=== PATIENT | male | born 1980 | race Caucasian/White ===

== ENCOUNTER 2025-01-15 15:00 | Outpatient (RCR) | payer BC, SELFPAY ==
--- NOTE | 2024-12-18 15:50 | HP.PTEVAL_ITS ---
Patient's Visit Information Visit Information Visit Information: JARVIS CLAROS is a 44 year old M referred to Physical Therapy by Dr. Calixto Donato MD with a diagnosis of L knee lateral release 11/21/24. Date of Evaluation: 12/18/24 Physical Therapist: Gabriel Williamson, PT, ATC Visit Plan Frequency: 2x /Week Duration: 4-6 Weeks Plan: L LE strengthening, core stab ex's, balance and proprio, bike, and HEP Subjective Subjective: DOS: 11/21/24. Pt reports he injured his L knee 5 years ago. Pt notes he was ascending stairs at his house when he experienced severe and sudden pain. Pt notes he had to wait for 5 years to have the surgery secondary to different practitioners referring him to pain management and physical therapy. Pt notes he finally had a lateral release performed as well as plica excision and chondroplasty to the patella and medial femoral condyle. Pt reports he is very glad to have had the surgery. Pt notes the severe pain he had prior to surgery is now gone. Pt reports he also has regained a lot of the mobility he had lost in his L knee. Pt denies tingling or numbness in L LE at this time. Pt denies sleep difficulty at this time. Pt reports he has stairs at home and descending them is still a little tricky. 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 Pt is able to perform all work duties, and IADL's at this time even though he is h aving difficulty with lifting heavy objects. 0/10 pain at rest, 3/10 pain at worst (when he tries to stretch his knee) Pain L knee: Pain Intensity (Out of 10): 0 Pain Intensity Range: 3 Objective Objective: TU seconds Neuro: B LE sensation is WNL to light touch. ROM: B knees are 0-120 degrees MMT: R knee flex= 65, ext= 64 #F; L knee flex= 46, ext= 64 #F Gait: No significant deviations at this time. Balance/Special Test Scores Lower Extremity Functional Score: 61 Goals Goal 1:: Decrease L knee pain x 50% to aid with stair negotiation Goal Time Frame: 4-6 Weeks Goal 2:: Increase L knee flexion strength to equal R knee flexion strength x 90% Goal Time Frame: 4-6 Weeks Goal 3:: I with HEP Goal Time Frame: 4-6 Weeks Rehabilitation Potential Physical Therapy Diagnosis: Pt has L knee pain and weakness secondary to L knee lateral release with chondroplasty and plica excision. Rehabilitation Potential: Good Anticipated Interventions Patient/Client Instruction: Educate patient on: Condition and Plan of Care For the Purpose of:: To improve self management Therapeutic Exercise to Include: Strength training, Endurance training, Balance training, Active ROM and Dynamic Lumbar Stabilization For the Purpose of:: To decrease pain, To improve muscle performance and motor function and To increase tolerance to activity/condition/position Text: Thank you for the opportunity to evaluate your patient. For Medicare and Medicare HMO plans, please review the plan of care and approve it. It will need to be FAXED BACK to us at [phone] for Medicare purposes. For Medicare only, by signing this I certify the plan of care. Please let me know if there are questions or concerns regarding this plan of care. Physician Signature: Date:
--- NOTE | 2025-01-15 15:34 | HP.PTDCSUM ---
Discharge Summary D/C summary: It has been my pleasure to treat JARVIS CLAROS referred by Dr. Calixto Donato MD, with the diagnosis of L knee lateral release 11/21/24 for a total of 9 visit(s). Discharge Date: Please see the following information for a summary of their discharge status. Subjective Subjective: Pt reports he is much better today Pain L knee: Pain Intensity (Out of 10): 2 Overall Improvement % Improvement: 90 Objective Objective/Function: Pt reports L knee pain ranges 2-3/10 L knee ROM: 0-135 degrees L knee MMT: flex= 70, ext= 62 #F Pt is I with HEP Goals Goal 1:: Decrease L knee pain x 50% to aid with stair negotiation Goal Progress: Goal Met Goal 2:: Increase L knee flexion strength to equal R knee flexion strength x 90% Goal Progress: Goal Met Goal 3:: I with HEP Goal Progress: Goal Met Plan Plan: Discharge to HEP D/C Information d/c sentence: If there are questions or concerns regarding this patient's physical therapy, please feel free to call me at [phone]. Thank you for the referral of this patient. Sincerely, Gabriel Williamson, PT, ATC Balance/Gait/Functional tests Balance/Special Test Scores Lower Extremity Functional Score: 80 Improvement % Improvement: 90
== END 2025-01-15 19:00 | disposition home or self-care (01) ==
LOC: PT 15:00
PROVIDERS: PCP Physician Assistant Medical; Referring Provider Orthopaedic Surgery; Visit Provider Orthopaedic Surgery
DX: M22.42 Chondromalacia patellae, left knee (principal)
CPT/HCPCS: 97110; 97161; 97530